=== PATIENT | female | born 1950 | race Caucasian/White ===

== ENCOUNTER → 2016-09-02 | Outpatient (CLI) | payer OTHER | LOC: BMCIMAGING 13:27 | PROVIDERS: ATTEND Internal Medicine Cardiovascular Disease | DX: I65.22 Occlusion and stenosis of left carotid artery (principal) ==

== ENCOUNTER → 2017-07-20 | Outpatient (CLI) | payer OTHER | LOC: FIMAGING 10:03 | PROVIDERS: ATTEND Internal Medicine Cardiovascular Disease | DX: E78.5 Hyperlipidemia, unspecified (principal); I10 Essential (primary) hypertension ==

== ENCOUNTER → 2017-08-17 | Outpatient (CLI) | payer OTHER ==
[~2017-08-17] MED LIST: IOPAMIDOL (ISOVUE-300) 100 ML BTL ONE
[2017-08-17 12:15] LABS: HEPATITIS B SURFACE ANTIGEN NEGATIVE (NEGATIVE)
== END ==
LOC: FIMAGING 08:31
PROVIDERS: ATTEND Internal Medicine
DX: R93.2 Abnormal findings on diagnostic imaging of liver and biliary tract (principal)
CPT/HCPCS: 74160; Q9967; 82565-PO

== ENCOUNTER → 2018-02-01 | Outpatient (CLI) | payer OTHER | LOC: FIMAGING 10:53 | PROVIDERS: ATTEND Internal Medicine Rheumatology | DX: Z12.31 Encounter for screening mammogram for malignant neoplasm of breast (principal) ==

== ENCOUNTER 2018-02-10 12:59 | Observation (INO) | payer OTHER ==
[2018-02-10] MEDS ORDERED: LR 1,000 ML IV ONE (13:09)
[2018-02-10] MEDS ORDERED: ceFAZolin 2 GM/DEXTROSE 100 ML IV ONE (13:09)
[2018-02-10] MEDS ORDERED: LIDOCAINE 1% 2 ML INJ ONE (13:27)
[2018-02-10] MEDS ORDERED: EPINEPHrine 1 MG/ML INJ ONE (15:03)
[2018-02-10] MEDS ORDERED: BUPIVACAINE 0.5% 30 ML SDV ONE (15:03)
[2018-02-10] MEDS ORDERED: CALCIUM CHLORIDE 1 GM/10 ML INJ ONE (15:49)
[2018-02-10] MEDS ORDERED: THROMBIN (BOVINE) 5,000 UNIT VIAL TP ONE (15:49)
--- NOTE | 2018-02-10 15:55 | PDANEPAE ---
ANE History of Present Illness Possible rotator cuff ANE Past Medical History - Cardiovascular History Hx Hypertension: Yes Hx Arrhythmias: No Hx Chest Pain: No Hx Coronary Artery / Peripheral Vascular Disease: Yes Hx CHF / Valvular Disease: No Hx Palpitations: No - Pulmonary History Hx COPD: No Hx Asthma/Reactive Airway Disease: No Hx Recent Upper Respiratory Infection: No Hx Oxygen in Use at Home: No Hx Sleep Apnea: No Sleep Apnea Screening Result - Last Documented: Negative - Neurologic History Hx Cerebrovascular Accident: No Hx Seizures: No Hx Dementia: No - Endocrine History Hx Diabetes: No - Renal History Hx Renal Disorders: No - Liver History Hx Hepatic Disorders: Yes Hepatic History Comment: HX FATTY LIVER - Neurological & Psychiatric Hx Hx Neurological and Psychiatric Disorders: No - Cancer History Hx Cancer: No - Congenital Disorder History Hx Congenital Disorders: No - GI History Hx Gastrointestinal Disorders: No - Other Health History Other Health History: NONE - Chronic Pain History Chronic Pain: Yes (L shoulder, spine) - Surgical History Prior Surgeries: SHOULDER L REPLACEMENT. SPINAL SURG LUMBAR. LAPAROSCOPY. 5th metatasal repair ANE Review of Systems Review of Systems: - Exercise capacity METS (RN): 4 METS ANE Patient History - Allergies Allergies/Adverse Reactions: aspirin Allergy (Verified 10/20/17 17:17) PETECHIAE,EFFECT ON PLATELETS - Home Medications Home Medications: Atorvastatin Calcium [Lipitor 20 mg (*)] 20 mg PO DAILY #0 10/20/17 [Last Taken 02/10/18 08:00] Herbals/Supplements -Info Only 1 ea PO DAILY #0 10/20/17 [Last Taken 02/09/18] amLODIPine BESYLATE [Norvasc 5 mg (*)] 5 mg PO DAILY #0 10/20/17 [Last Taken 08:00] Cholecalciferol Vit D3 [Vitamin D3 2000 units tab (OTC)] 2,000 units PO DAILY [Last Taken 02/09/18] Ascorbic Acid [Vitamin C 500 mg (*)] 500 mg PO DAILY 02/10/18 [Last Taken ] Multivitamins [Multivitamin (*)] 1 each PO DAILY 02/10/18 [Last Taken 02/09/18] [place]-3 Fatty Acids [Fish Oil 1000 mg (*)] 1,000 mg PO DAILY 02/10/18 [Last Taken 02/09/18] - NPO status NPO Since - Liquids (Date): 02/10/18 NPO Since - Liquids (Time): 00:00 NPO Since - Solids (Date): 02/10/18 NPO Since - Solids (Time): 18:00 - Anes Hx Anes Hx: no prior problems (Had ISB for shoulder arthroplasty and arm numb/weak for 5 days) - Smoking Hx Smoking Status: Never smoked - Family Anes Hx Family Hx Anesthesia Complications: none ANE Labs/Vital Signs - Vital Signs Blood Pressure: 105/82 Heart Rate: 70 Respiratory Rate: 18 O2 Sat (%): 97 Height: 162.56 cm Weight: 60.781 kg ANE Physical Exam - Airway Neck exam: FROM Mallampati Score: Class 2 Mouth exam: normal dental/mouth exam - Pulmonary Pulmonary: no respiratory distress - Cardiovascular Cardiovascular: regular rate and rhythym - ASA Status ASA Status: III ANE Anesthesia Plan Anesthesia Plan: GA w LMA (Block discussed and pt declined due to problems with prior block. )
[2018-02-10] MEDS ORDERED: BUPIVACAINE/EPI 0.5% 30 ML SDV ONE ×2 (16:07→19:10)
[2018-02-10] MEDS ORDERED: LIDOCAINE 2% 5 ML SDV ONE (16:10)
[2018-02-10] MEDS ORDERED: PROPOFOL 200 MG/20 ML VIAL ONE (16:12)
[2018-02-10] MEDS ORDERED: fentaNYL 100 MCG/2 ML INJ ONE ×4 (16:12→20:20)
[2018-02-10] MEDS ORDERED: DEXAMETHASONE 4 MG/ML VIAL ONE ×2 (17:37)
[2018-02-10] MEDS ORDERED: fentaNYL 100 MCG/2 ML INJ IVP PRN (18:18)
[2018-02-10] MEDS ORDERED: ALBUTEROL 3 ML DEYVIAL IH PRN (18:18)
[2018-02-10] MEDS ORDERED: HYDROmorphONE/DILAUDID 2 MG/ML INJ IVP PRN (18:18)
[2018-02-10] MEDS ORDERED: NALOXONE HCL 0.4 MG/ML INJ IVP PRN ×2 (18:18→19:55)
--- NOTE | 2018-02-10 18:41 | GHP ---
DATE OF ADMISSION: 02/10/2018 COMPLAINT: Right shoulder pain. HISTORY OF PRESENT ILLNESS: This is a 67-year-old female with a several-month history of right shoul blanca pain worsening with use and with time. Radiologic studies reveal a labral tear as well as a very thin rotator cuff. Anterior acromial hook and AC osteoarthritis. She wished to have surgery in ord er to resolve the problem. ALLERGIES: Include aspirin. CURRENT MEDICATIONS: Include amlodipine, Crestor, Vivotif and Zofran. PRIOR MEDICAL PROBLEMS: Include arthritis, heart disease, high blood pressure, osteoporosis. PRIOR SURGERIES: Include orthopedic surgery times 4. Cardiac catheterization. GI surgery. ORIF of a foot fracture. SOCIAL HISTORY: She has never been a smoker. Not a drinker. PHYSICAL EXAMINATION: HEENT: Pupils equal, round, and reactive to light. CHEST: Clear to ausculta tion. HEART: Regular rate and rhythm. ABDOMEN: Soft and nontender. Physical exam of the shoulder reveals good range of motion with pain and weakness to supraspinatus test. Cross chest test. Radiological studies reveal slightly high riding humeral head, some osteoarthritic changes of the inf erior glenoid and type 2 acromion. ASSESSMENT AND PLAN: Patient is status post right shoulder impingement syndrome with acromioclavicul ar osteoarthritis, labral tear and possible rotator cuff. PLANS: Take her to the operating room to undergo a right shoulder scope with subacromial decompressi on, acromioclavicular resection and possible rotator cuff repair. /[id number]/MODL
[2018-02-10] MEDS ORDERED: LIDO/EPI 2% **for epidural** 20 ML SDV ONE (19:10)
[2018-02-10] MEDS ORDERED: DEPO METHYLPREDNISOLONE 40 MG/ML SDV ONE (19:10)
[2018-02-10] MEDS ORDERED: HYDROmorphONE/DILAUDID 1 MG/ML INJ IVP PRN (19:29)
[2018-02-10] MEDS ORDERED: ONDANSETRON 4 MG/2 ML VIAL IVP PRN (19:29)
[2018-02-10] MEDS ORDERED: HYDROCODONE/APAP 5/325 TAB PO PRN (19:29)
--- NOTE | 2018-02-10 19:29 | POSTOPPROG ---
Post Op Note Date of Operation: 02/10/18 Surgeon: Cassi Matson Anesthesia: LMA Pre-op Diagnosis: r shoulder impingement w/ rct/ac-oa/labral tear and s/p l shoulder resurfac Procedure: r shoulder scope with rcr/sad/ac resection/labral debride and l shoulder in Inf/Abcess present in the surg proc area at time of surgery?: No Depth: Deep Incisional (Fascial) EBL: 50-100
[2018-02-10] MEDS ORDERED: LR 1,000 ML IV SCH (19:30)
--- NOTE | 2018-02-10 19:34 | POSTANESTH ---
Post Anesthetic Evaluation Cardiovascular Status: Similar to Pre-Op Cond Respiratory Status: Similar to Pre-op Cond. Level of Consciousness/Mental Status: Mildly Sleepy, Arousable Pain Control: Adequate, Prn Tx Ordered Nausea/Vomiting Control: Adequate, Prn Tx Ordered Complications Possibly Related to Anesthesia: None Noted
[2018-02-10] MEDS ORDERED: ONDANSETRON 4 MG/2 ML VIAL ONE ×2 (19:39→19:54)
[2018-02-10] MEDS: ONDANSETRON 4 MG/2 ML VIAL IVP PRN ×2 (19:40→19:55)
[2018-02-10] MEDS ORDERED: PROMETHAZINE HCL 25 MG/ML INJ ONE (19:51)
[2018-02-10] MEDS ORDERED: METOCLOPRAMIDE 10 MG/2 ML VIAL IVP PRN (19:55)
[2018-02-10] MEDS ORDERED: PROMETHAZINE HCL 25 MG/ML INJ IVP PRN (19:55)
[2018-02-10] MEDS: OXYCODONE/APAP 5/325 TAB PO PRN (23:51)
[2018-02-11] MEDS: ceFAZolin 2 GM/DEXTROSE 100 ML IV SCH ×2 (00:45→08:37)
[2018-02-11] MEDS: ACETAMINOPHEN 325 MG TAB PO SCH ×3 (00:47→13:16)
[2018-02-11] MEDS: OXYCODONE/APAP 5/325 TAB PO PRN (06:03)
--- NOTE | 2018-02-11 07:20 | GOP ---
DATE OF OPERATION: 02/10/2018 SURGEON: Cassi Matson MD ANESTHESIA: LMA. PREOPERATIVE DIAGNOSIS: Right shoulder impingement syndrome with acromioclavicular osteoarthritis, l abral tear, osteoarthritis and a rotator cuff tear as well as pain from a left shoulder resurfacing. POSTOPERATIVE DIAGNOSIS: Right shoulder impingement syndrome with acromioclavicular osteoarthritis, labral tear, osteoarthritis and a rotator cuff tear as well as pain from a left shoulder resurfacing with a grade 4 chondral change to the glenoid. PROCEDURE PERFORMED: Right shoulder arthroscopy with rotator cuff repair x1, subacromial decompressi on, arthroscopic acromioclavicular resection, debridement of biceps anchor, rotator cuff, labrum, cho ndroplasty of the glenoid as well as removal of loose body from the glenohumeral joint and a left bren ulder steroid injection. FINDINGS: INDICATIONS: This is a 67-year-old female with a several-month history of right shoulder pain worsen ing with use and with time. MRI exams revealed an anterior acromial curve, an extremely thin rotator cuff with possibility of a tear as well as extensive tearing of the labrum and osteoarthritic change s. She wishes to have surgery in order to resolve the problem. She also has issues with pain from a prior left shoulder resurfacing that continues to cause her problem. She would like an injection to day to alleviate some of her symptomatology here. DESCRIPTION OF PROCEDURE: Patient was brought to the operating room after the right side had been id entified as correct side by the patient, nurse, and physician, and the left side had been identified as correct site for an injection by the patient, nurse, and physician. Once in the operating room, s he was placed under general anesthesia using an LMA. She was placed in a beach chair position with t he right upper extremity sterilely prepped and draped in the usual fashion using a COLBY/solution. Onc e prepped and draped, incision was made on the posterolateral corner of the acromion with the camera introduced without difficulty. Inspection of the joint revealed extensive tearing of the entirety of the labrum. She had some extensive grade 3 and one area of grade 4 chondral change to the glenoid. She is noted to have some grade 2 chondral change noted in the humeral head. Further inspection rev ealed extensive fraying of the rotator cuff with peeling of the muscle off the greater tuberosity but no through and through hole was able to be detected from the glenohumeral joint. Therefore, using i n-to-out technique, an anterior portal was made superolateral to the coracoid process with a 6 x 75 m m threaded cannula placed in the anterior portal and a 3.5 mm smooth shaver used to debride and debul k the abundant tears of the anterior, posterior, superior and inferior portions of the labrum, remove loose fragments of cartilage from the glenoid as well as removing fragments of soft tissue from the undersurface of the rotator cuff. A small loose body was found in the anterior portion of the should er and this was also removed. Once completed, all instruments were removed from the glenohumeral wilmer nt, using the same portal sites, were reintroduced in the subacromial space. A third incision was ma de 2 cm lateral to the acromial process in line with the posterior cortex of the clavicle with the ca curly switched to the lateral portal, and alternatingly using arthroscopic Bovie tip and a shaver was used to remove the abundant amount of soft tissue from the undersurface of the acromion as well as th e subacromial space. She was noted to have a short, sharp inferior spur off the anterior portion of the glenoid and Acromionizer bur was brought through the posterior portal and used to remove that spu r until achieving a flat ceiling. Attention was turned to the distal clavicle which was also noted t o have a short, sharp inferior spur, and this was also removed using a combination of shaver bur unti l achieving a flat surface. The camera was then switched to the posterior portal and a probe was use d to examine the rotator cuff. She was noted to have a through and through tear at the very edge of the greater tuberosity. This area was then thoroughly cleaned, debrided until achieving healthy edge s to the rotator cuff. Approximately a 1.5 cm area around the greater tuberosity had soft tissue rem cornelia as well as the bone eburnated in order to achieve a healing surface. #2 FiberWire was then wove n into the rotator cuff muscle, attached onto a 4.5 mm [place] anchor and driven into the bone ion g the rotator cuff onto the eburnated bone associated with the greater tuberosity. Once completed, t he camera was switched back to the lateral portal and an 18-gauge needle was used to identify and iso late the AC joint. An incision was made directly over the AC joint and using combination of shaver a nd bur was used to remove bone from the distal end of the clavicle and a small amount from the medial portion of the acromion. Once the space had been made wide enough, a camera was introduced into the AC joint and a probe brought from the side and pictures taken showing how much bone had been removed from the AC joint. Camera was then switched back to the lateral portal and a probe perched on the e nd of the clavicle showing how much bone had been removed. Once finished, 30 cc of Marcaine was infu sed in the subacromial space, and the 4 portal sites were closed using 3-0 nylon suture in a figure-o f-eight type stitch. Plasma gel was then injected into the subacromial space, in order to facilitate healing. The wounds were then dressed with Xeroform, 4 x 4, and Tegaderm. She was completely undra ped in the operating room, had a shoulder immobilizer placed on the left upper extremity. Attention was turned to the right upper extremity where palpation was done over the glenohumeral join t identifying the area over the glenohumeral joint associated with the scar. The anterior shoulder w as washed using alcohol solution and lidocaine, Marcaine and 40 mg of Depo-Medrol were injected into the glenohumeral joint from an anterior site. Once finished, the needle was removed. Attention was turned to the patient. She was woken up, extubated, transferred onto a stretcher, and sent to recovery room in good condition. /[id number]/MODL
[2018-02-11] MEDS ORDERED: amLODIPine BESYLATE 5 MG TAB PO SCH (09:00)
[2018-02-11] MEDS ORDERED: ATORVASTATIN CALCIUM 20 MG TAB PO SCH (09:00)
[2018-02-11 12:04] VITALS: BP 115/55
--- NOTE | 2018-02-11 12:57 | SOAPPROG ---
SOAP Progress Note Assessment/Plan: Assessment: Plan: Subjective: states she's ready for home dressings C&D with XIN BURKS and in immobilizer DC to home Objective: Vital Signs Temp Pulse Resp BP Pulse Ox 37.2 C 76 16 115/55 L 95 02/11/18 11:59 02/11/18 11:59 02/11/18 11:59 02/11/18 11:59 02/11/18 11:59 02/10/18 02/11/18 02/12/18 05:59 05:59 05:59 Intake Total 1400 930 Output Total 1220 Balance 180 930 ICD10 Worksheet Patient Problems: Problems Problem Status Onset Rotator cuff impingement syndrome of right shoulder Acute - ICD10 Problem Qualifiers (1) Rotator cuff impingement syndrome of right shoulder
--- NOTE | 2018-02-11 18:16 | ASMTLACE ---
ZAK Acuity / Level of Answers: Yes Care: Did the patient have an inpatient admission? Comorbidities - select Answers: Coronary Artery Disease all that apply Other Notes: Arthritis, osteoarthrit is, HTN # of Emergency department Answers: 0 visits in the last 6 months Score: 6 Date Signed: 02/11/2018 06:16 PM Electronically Signed By:Edwina Fox RN
--- NOTE | 2018-02-11 18:51 | ASDISCHSUM ---
Discharge Information Plan Status:Home with No Needs Medically Cleared to Leave:02/10/2018 Discharge Date:02/11/2018 01:38 PM CM D/C Disposition:Home, Routine, Self-Care ADT D/C Disposition:Home, Routine, Self-Care Projected Discharge Date:02/11/2018 01:38 PM Transportation at D/C:None or Unknown Discharge Delay Reason: Follow-Up Date:02/11/2018 01:38 PM Discharge Slot:2 - 12:01 pm - 18:00 pm Final Diagnosis:Shoulder arthritis, impingement syndrome, OA of shoulder, s/p right shoulder arthros copy Placement Information Patient Contact Information Contact Name:KHADIJAH Relationship:Friend Address: Work Phone: City: [facility] Phone: [facility]/fav[employer]or.it Code: Email: Financial Information Financial Class:Medicare Primary Plan Desc:MEDICARE OUTPATIENT Primary Plan Number:[id number] Secondary Plan Desc:BEE Secondary Plan Number:[id number] Assessment Information LACE LACE Acuity / Level of Answers: Yes Care: Did the patient have an inpatient admission? Comorbidities - select Answers: Coronary Artery Disease all that apply Other Notes: Arthritis, osteoarthrit is, HTN # of Emergency department Answers: 0 visits in the last 6 months Score: 6 Date Signed: 02/11/2018 06:16 PM Electronically Signed By:Edwina Fox RN [facility] CM Progress Note CM Note CM Note Notes: Reviewed chart, spoke with MARK Carey. Pt admitted for a planned right shoulder arthroscopy secondary to shoulder arthritis, impingement syndrome, shoulder OA. History includes heart disease, CAD, HTN, arthritis, osteoarthritis. [place] Spoke with Maddy from OT. Per Maddy, pt unable to put on sling independently. Pt also with some mobility concerns - OT recommends SNF. Attempted to meet with pt to discuss SNF placement; pt very concerned insurance won't cover cost of rehab. Per MD, pt to discharge home independently today. Dr. Matson provided instruction on sling placement. Per MARK Carey, pt with no identified needs. Pt comfortable with independent discharge plan. No IM signed, admission less than 24 hrs. Pt to follow up as directed. CM available for any further issues or concerns. Discharge Plan: Home independent Date Signed: 02/11/2018 06:50 PM Electronically Signed By:Edwina Fox RN Intervention Information Intervention Type:*Condition Code 44 Date of Service:02/11/2018 02:19 PM Patient Type:Observation Staff Member:MARK Sadler, Rocío Hours: Discipline: Severity: Comment:
== END 2018-02-11 13:38 | disposition home or self-care (01) ==
LOC: F3N 12:59 → EEVIPCON 15:00 → F3N 20:59
PROVIDERS: ADMIT Orthopaedic Surgery; ATTEND Orthopaedic Surgery
DX: M75.81 Other shoulder lesions, right shoulder (principal); M75.121 Complete rotator cuff tear or rupture of right shoulder, not specified as traumatic; M19.011 Primary osteoarthritis, right shoulder; M75.41 Impingement syndrome of right shoulder; M94.8X1 Other specified disorders of cartilage, shoulder; I25.10 Atherosclerotic heart disease of native coronary artery without angina pectoris
CPT/HCPCS: 29826; 29827; 97166; 97535; C1713; G8987; G8988; J0171; J0690; J1030; J1100; J2405; J2550; J2704; J3010; J2270

== ENCOUNTER → 2018-06-15 | Outpatient (CLI) | payer OTHER | LOC: FIMAGING 08:39 | PROVIDERS: ATTEND Internal Medicine | DX: E03.9 Hypothyroidism, unspecified (principal); E05.90 Thyrotoxicosis, unspecified without thyrotoxic crisis or storm | CPT/HCPCS: 78012; A9516; 84445-90 ==

== ENCOUNTER → 2018-08-02 | Outpatient (CLI) | payer OTHER | LOC: FIMAGING 09:34 ==